=== PATIENT | male | born 1995 | race African-American/Black ===

== ENCOUNTER 2019-07-19 15:33 | Emergency (ER) | payer OTHER, SELFPAY ==
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
[2019-07-19 15:31] VITALS: BP 155/98; PULSE 79; RESP 18; TEMP 36.5; O2SAT 97
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
[2019-07-19 16:16] VITALS: BP 128/94; PULSE 78; RESP 18; O2SAT 99
[2019-07-19 17:38] VITALS: BP 128/65; PULSE 95; RESP 17; O2SAT 100
== END 2019-07-19 17:42 | disposition home or self-care (01) ==
PROVIDERS: Emergency Provider Emergency Medicine; PCP Nurse Practitioner Family
DX: S05.02XA Injury of conjunctiva and corneal abrasion without foreign body, left eye, initial encounter (principal); Z21 Asymptomatic human immunodeficiency virus [HIV] infection status; F17.290 Nicotine dependence, other tobacco product, uncomplicated; V43.52XA Car driver injured in collision with other type car in traffic accident, initial encounter
CPT/HCPCS: 70480; 99284; A9270

== ENCOUNTER 2024-01-26 11:27 | Emergency (ER) | payer OTHER, SELFPAY ==
[2024-01-26 11:29] VITALS: BP 125/85; PULSE 106; RESP 18; TEMP 36.6; O2SAT 100
--- NOTE | 2024-01-26 11:48 | PC.NURSE ---
Pt to wellness trainer states he is just going to go Encouraged pt to stay, pt continues to refuse and stomps out of ER.
== END 2024-01-26 13:07 | disposition left against medical advice (07) ==
DX: R19.7 Diarrhea, unspecified (principal)
CPT/HCPCS: 99199